=== PATIENT | male | born 1950 | race Caucasian/White ===

== ENCOUNTER 2021-02-15 07:09 | Day surgery (SDC) | payer MEDICARE ==
[2021-02-08 11:04] LABS: CLARITY,URINE CLEAR (Clear); COLOR,URINE YELLOW (Yellow); GLUCOSE, URINE NEGATIVE (Neg); KETONES,URINE NEGATIVE (Neg); LEUKOCYTE ESTERASE ,URINE NEGATIVE (Neg); NITRITES, URINE NEGATIVE (Neg); OCCULT BLOOD,URINE NEGATIVE (Neg); PROTEIN,URINE NEGATIVE (Neg); UROBILINOGEN,URINE 0.2 E.U/dL (0.2-1.0)
[2021-02-08 11:10] LABS: BASOPHILS # (AUTO) 0.1 X10'3 (0-0.2); BASOPHILS % (AUTO) 1.2 % (0-1); EOSINOPHILS # (AUTO) 0.2 X10'3 (0-0.9); EOSINOPHILS % (AUTO) 2.5 % (0-6); HEMATOCRIT 37.3 % (42.0-52.0); LYMPHOCYTES % (AUTO) 16.9 % (21-51); MEAN CORPUSCULAR HEMOGLOBIN 27.6 PG (27.0-31.0); MEAN CORPUSCULAR HGB CONC 32.2 g/dL (33.0-36.5); MEAN CORPUSCULAR VOLUME 85.8 FL (78-98); MEAN PLATELET VOLUME 7.5 FL (7.4-10.4); MONOCYTES # (AUTO) 0.6 X10'3 (0-0.9); MONOCYTES % (AUTO) 9.9 % (2-12); NEUTROPHILS # (AUTO) 4.3 X10'3 (1.8-7.7); NEUTROPHILS % (AUTO) 69.5 % (42-75); PLATELET COUNT 387 X10'3 (140-440); RED BLOOD COUNT 4.35 X10'6 (4.70-6.10); RED CELL DISTRIBUTION WIDTH 15.9 % (11.5-14.5); WHITE BLOOD COUNT 6.1 X10'3 (4.5-11.0)
[2021-02-08 11:12] LABS: UA COLLECTION TYPE NON-SPECIFIED
[2021-02-08 11:29] LABS: ALBUMIN 3.7 G/DL (3.4-5.0); ALBUMIN/GLOBULIN RATIO 1.1 (1.1-1.5); ALKALINE PHOSPHATASE 78 IU/L (46-116); BLOOD UREA NITROGEN 11 MG/DL (7-18); BUN/CREATININE RATIO 14.3 (5.4-32.0); CALCIUM 8.6 MG/DL (8.5-10.1); CHLORIDE 103 MMOL/L (99-107); CREATININE 0.77 MG/DL (0.60-1.10); PRE OP ALT 32 U/L (30-65); PRE OP ANION GAP 11 (8-16); PRE OP AST 27 U/L (10-37); PRE OP BILIRUB, TOTAL 0.5 MG/DL (0.0-1.0); PRE OP GLUCOSE 105 MG/DL (70-104); PRE OP SODIUM 139 MMOL/L (135-145); TOTAL CARBON DIOXIDE 24.9 MMOL/L (24-32); TOTAL PROTEIN 7.2 G/DL (6.4-8.2); eGFR > 90 ML/MIN
[2021-02-08 11:30] LABS: PRE OP POTASSIUM 4.3 MMOL/L (3.4-5.1)
[~2021-02-15] VITALS: Ht 177.8 cm; Wt 88.6 kg
[2021-02-15] VITALS (9 sets, daily range): BP systolic 137–182; BP diastolic 75–88
[~2021-02-15 07:09] MED LIST: ACET-1059 PO; cefazolin/dext.iso 2gm/100ml IV ONE; famotidine 20mg tablet PO ONE; ringers solution, lacted 1,000 ML IV SCH
[2021-02-15] MEDS ORDERED: ringers solution, lacted 1,000 ML IV SCH (08:20)
[2021-02-15] MEDS ORDERED: ondansetron/PF 4mg/2ml inj IV PRN (08:20)
[2021-02-15] MEDS ORDERED: morphine 2 MG/ML inj. syringe IV PRN (08:20)
[2021-02-15] MEDS ORDERED: meperidine/PF 25mg/ml syringe IV PRN ×3 (08:20)
[2021-02-15] MEDS ORDERED: proCHLORperazine 10 MG/2 ml inj IV PRN (08:20)
[2021-02-15] MEDS ORDERED: morphine 4 MG/ML inj SYRINge IV PRN (08:20)
[2021-02-15] MEDS ORDERED: BUPIVAcaine/PF 2.5 mg/ml (0.25%) 30ml vial ONE (08:22)
[2021-02-15] MEDS ORDERED: bacitracin 15gm ointment TP ONE (08:22)
[2021-02-15] MEDS ORDERED: sevoflurane 250ml liquid IH ONE (08:32)
[2021-02-15] MEDS ORDERED: fentaNYL/PF 50MCG/1 ML 2ML syringe ONE (08:41)
[2021-02-15] MEDS ORDERED: MIDAZolam 1 MG/ML 5ML VIAL ONE (08:42)
[2021-02-15] MEDS ORDERED: ROPIVAcaine 0.5% (5mg/ml) 30ml vial ONE (08:43)
[2021-02-15] MEDS ORDERED: propofol inj 20 ML IV ONE (09:22)
[2021-02-15] MEDS ORDERED: dexamethasone sod phosphate 4mg/ml inj. ONE (09:22)
[2021-02-15] MEDS ORDERED: LIDOcaine 2% (20mg/ml) 5ml vial ONE (09:22)
[2021-02-15] MEDS ORDERED: ROPIVAcaine 0.2%/PF PUMP/bolus 545 ML POPLITEAL SCH (11:05)
[2021-02-15] MEDS ORDERED: ROPIVAcaine 0.2% (10 MG/5 ML) BOLUS INJECTION POPLITEAL PRN (11:05)
[2021-02-15] MEDS ORDERED: ondansetron/PF 4mg/2ml inj ONE (11:20)
[2021-02-15] MEDS ORDERED: meperidine/PF 50mg/ml syringe ONE (12:28)
--- NOTE | 2021-02-15 12:35 | NUR ---
ADMITTED TO PACU FROM OR ACCOMPANIED BY ANESTHESIA. INTIAL PHYSICAL ASSESSMENT DONE AND RECORDED. REPORT RECEIVED FROM ANESTHESIA.
--- NOTE | 2021-02-15 13:45 | NUR ---
PACU DISCHARGE CRITERIA MET, REPORT GIVEN TO FLOOR. DENIES PAIN OR DISCOMFORT. PT IS STABLE AND ADEQUATELY RECOVERED FROM ANESTHESIA. PT HAS STABLE AIRWAY PATENCY, RESPIRATORY FUNCTION TO INCLUDE RESPIRATORY RATE AND O2 SAT. HEART RATE, BLOOD PRESSURE STABLE AND HYDRATION ADEQUATE. MENTAL STATUS IS APPROPRIATE. PAIN AND NAUSEA CONTROLLED. REFER TO PACU SPREADSHEET FOR VITAL SIGNS.
--- NOTE | 2021-02-15 15:30 | NUR ---
Ankle had a small amount of bloody drainage, per Dr. Caicedo, reinforce and wrap with lyndsey wrap and ok to DC. Reinforced with gauze and lyndsey wrap. VSS, denies pain. Voided x2
--- NOTE | 2021-02-15 17:30 | NUR ---
pt discharged to home via private vehicle with friend.
== END 2021-02-15 17:00 | disposition home or self-care (01) ==
LOC: PAS 07:09 → ORTHO 4S 15:45 → PAS 17:00
PROVIDERS: ATTEND Podiatrist Foot & Ankle Surgery
DX: M19.072 Primary osteoarthritis, left ankle and foot (principal); S92.002A Unspecified fracture of left calcaneus, initial encounter for closed fracture; Z20.822 Contact with and (suspected) exposure to COVID-19; G89.18 Other acute postprocedural pain; X58.XXXA Exposure to other specified factors, initial encounter; Y93.89 Activity, other specified; Y92.89 Other specified places as the place of occurrence of the external cause; Y99.8 Other external cause status
CPT/HCPCS: 28415; 36415; 64446; 73630; 76000; 80053; 81003; 85025; 93005; A6223; C1713; C9359; J1100; J2001; J2175; J2250; J2405; J2704; J2795; J3010; J3490; U0003; U0005; A4618; A6253; A6446; A6449; A7000; G0378; J7120